=== PATIENT | female | born 1965 | race Caucasian/White ===

== ENCOUNTER 2017-10-18 01:33 | Emergency (ER) | payer BC ==
[~2017-10-18] VITALS: Ht 160 cm; Wt 52.2 kg
[2017-10-18 01:38] VITALS: BP_SYST 161
[2017-10-18] MEDS ORDERED: NACL 0.9% 1,000 ML IV ONE (01:55)
[2017-10-18] MEDS ORDERED: NITROGLYCERIN 0.4 MG TAB.SUBL SL ONE (02:00)
[2017-10-18] MEDS ORDERED: MORPHINE 4 MG/ML INJ. SYRINGE IVP ONE (02:00)
[2017-10-18] MEDS ORDERED: ASPIRIN 81 MG TAB.CHEW PO ONE (02:00)
[2017-10-18] MEDS ORDERED: PANTOPRAZOLE SODIUM 40 MG/VIAL (PROTONIX) IVP ONE (02:00)
[2017-10-18] MEDS ORDERED: ONDANSETRON HCL 4 MG/2 ML VIAL IVP ONE (02:00)
[2017-10-18] MEDS ORDERED: ASPIRIN 81 MG TABLET(ECOTRIN) ONE ×2 (02:30→02:31)
[2017-10-18 02:53] LABS: BASOPHILS # (AUTO) 0.1 K/uL (0.0-0.2); BASOPHILS % (AUTO) 0.5 % (0.0-2.0); EOSINOPHILS # (AUTO) 0.2 K/uL (0.0-0.4); EOSINOPHILS % (AUTO) 1.4 % (0.0-4.0); HEMATOCRIT 39.1 % (36-48); HEMOGLOBIN 13.4 g/dL (12.0-16.0); LYMPHOCYTES # (AUTO) 1.3 K/uL (1.0-5.5); LYMPHOCYTES % (AUTO) 10.1 % (20.5-51.5); MEAN CORPUSCULAR HEMOGLOBIN 31 pg (27-31); MEAN CORPUSCULAR HGB CONC 34 % (32-36); MEAN CORPUSCULAR VOLUME 90 fL (79.0-98.0); MONOCYTES # (AUTO) 0.6 K/uL (0.0-1.0); MONOCYTES % (AUTO) 5.1 % (1.7-9.3); NEUTROPHILS # (AUTO) 10.4 K/uL (1.8-7.7); NEUTROPHILS % (AUTO) 82.9 % (40.0-70.0); PLATELET COUNT (AUTO) 280 K/uL (130-430); RED BLOOD CELL COUNT(AUTO) 4.35 MIL/uL (4.2-6.2); RED CELL DISTRIBUTION WIDTH 11.2 % (9.0-15.0); WHITE BLOOD COUNT (AUTO) 12.6 K/uL (4.8-10.8)
[2017-10-18 03:02] LABS: BILIRUBIN,URINE NEGATIVE (NEGATIVE); CLARITY/URINE CLEAR (CLEAR); KETONES,URINE TRACE (NEGATIVE); LEUKOCYTE ESTERASE ,URINE 2+ (NEGATIVE); NITRITE, URINE POSITIVE (NEGATIVE); PROTEIN URINE 2+ (NEGATIVE)
[2017-10-18 03:04] LABS: BLOOD, URINE TRACE (NEGATIVE)
[2017-10-18 03:06] LABS: CALCIUM 10.7 mg/dL (8.4-11.0); CREATININE 0.72 mg/dL (0.55-1.30); POTASSIUM 3.3 mmol/L (3.5-5.1)
[2017-10-18 03:10] LABS: ALBUMIN 3.6 g/dL (3.4-4.8); TOTAL BILIRUBIN 1.2 mg/dL (0.0-1.0)
[2017-10-18 03:28] LABS: INR 0.9 (0.8-1.2); PROTHROMBIN TIME 9.5 SECS (9.5-12.5)
[2017-10-18 03:36] LABS: GLUCOSE,URINE NEGATIVE (NEGATIVE)
[2017-10-18 03:38] LABS: BACTERIA,URINE MODERATE /HPF (None Seen)
[2017-10-18 03:48] LABS: COLOR,URINE ORANGE (YELLOW)
[2017-10-18] MEDS ORDERED: SULFAMETHOXAZOLE/TRIMETHOPR DS 1 TABLET PO ONE (05:30)
[2017-10-18 06:23] VITALS: BP_SYST 143
[2017-10-18] MEDS ORDERED: IPRATROPIUM/ALBUTEROL SULFATE 3 ML AMPUL.NEB ONE (11:54)
== END 2017-10-18 06:23 | disposition home or self-care (01) ==
LOC: SED 01:33
DX: R07.89 Other chest pain (principal); R03.0 Elevated blood-pressure reading, without diagnosis of hypertension; Z88.0 Allergy status to penicillin
CPT/HCPCS: 36415; 71045; 80053; 81000; 83690; 83880; 84484; 85025; 85610; 85730; 87086; 87186; 93005; 96374; 96375; 99285; C9113; J2405; J7030; J7620; J2270